=== PATIENT | male | born 1965 | race Caucasian/White ===

== ENCOUNTER 2017-11-14 08:17 | Inpatient (IN) | payer BC ==
[~2017-11-14] VITALS: Ht 177.8 cm; Wt 105.2 kg
--- NOTE | 2017-11-14 08:34 | NUR ---
Pt placed in bed 4
[2017-11-14 08:38] VITALS: BP_SYST 146
--- NOTE | 2017-11-14 08:49 | NUR ---
ER at bedside examining patient.
--- NOTE | 2017-11-14 08:57 | NUR ---
Fito meadows in ED - 11/14/17 at 0909 by LORNA Pt went to CT in stable condition
[2017-11-14] MEDS ORDERED: MORPHINE 4 MG/ML INJ. SYRINGE IVP ONE (09:00)
--- NOTE | 2017-11-14 09:07 | NUR ---
Medicated for pain per MD orders. Placed on SpO2 monitor. VSS.
--- NOTE | 2017-11-14 09:16 | NUR ---
Pt went to CT in stable condition
[2017-11-14 09:24] LABS: CALCIUM 9.5 mg/dL (8.4-11.0); CREATININE 0.75 mg/dL (0.55-1.30); POTASSIUM 4.7 mmol/L (3.5-5.1)
--- NOTE | 2017-11-14 09:26 | NUR ---
Pt returned from CT in stable condition
[2017-11-14 09:29] LABS: TOTAL BILIRUBIN 0.5 mg/dL (0.0-1.0)
[2017-11-14 09:38] LABS: BASOPHILS # (AUTO) 0.1 K/uL (0.0-0.2); BASOPHILS % (AUTO) 0.6 % (0.0-2.0); EOSINOPHILS # (AUTO) 0.1 K/uL (0.0-0.4); EOSINOPHILS % (AUTO) 1.2 % (0.0-4.0); HEMATOCRIT 42.2 % (36-54); HEMOGLOBIN 14.6 g/dL (14.0-18.0); LYMPHOCYTES # (AUTO) 0.9 K/uL (1.0-5.5); LYMPHOCYTES % (AUTO) 7.3 % (20.5-51.5); MEAN CORPUSCULAR HEMOGLOBIN 33 pg (27-31); MEAN CORPUSCULAR HGB CONC 35 % (32-36); MEAN CORPUSCULAR VOLUME 95 fL (79.0-98.0); MONOCYTES # (AUTO) 0.5 K/uL (0.0-1.0); NEUTROPHILS # (AUTO) 10.7 K/uL (1.8-7.7); NEUTROPHILS % (AUTO) 86.9 % (40.0-70.0); PLATELET COUNT (AUTO) 297 K/uL (130-430); RED BLOOD CELL COUNT(AUTO) 4.47 MIL/uL (4.2-6.2); RED CELL DISTRIBUTION WIDTH 11.6 % (9.0-15.0); WHITE BLOOD COUNT (AUTO) 12.3 K/uL (4.8-10.8)
[2017-11-14] MEDS ORDERED: LISI-600 PO (10:12)
[2017-11-14] MEDS ORDERED: NOR10 PO (10:12)
--- NOTE | 2017-11-14 10:13 | NUR ---
Medication reconciliation completed with information provided by patient. Any prior medication reconciliation on file was reviewed and corrected.
--- NOTE | 2017-11-14 10:15 | NUR ---
Lab and X ray are at bedside.
--- NOTE | 2017-11-14 10:24 | NUR ---
Patient will be admitted to care of Dr Wiseman. Admitted to Med surg unit. Will go to room 111B. Belongings list completed. Summary report printed. Report will be given at bedside.
[2017-11-14 10:27] LABS: INR 0.9 (0.80-1.20); PROTHROMBIN TIME 9.1 SECS (9.5-12.5)
--- NOTE | 2017-11-14 10:28 | NUR ---
ADMIT NOTE Received pt from ER to the floor with a diagnosis of Acute Diverticulitis. Admission process initiated. patient oriented to pain management, safety and call light-teach back done.
[2017-11-14 10:35] VITALS: BP_SYST 140
--- NOTE | 2017-11-14 10:45 | NUR ---
Opening Note: Patient laying in bed resting, at bedside. Patient denies pain and discomfort at this time. Breathing is even and unlabored with no distress noted. IV patent and intact. Bed in lowest position, wheels locked, side rails x3 and call light within reach. No current needs. WIll continue to monitor.
[2017-11-14] MEDS: metroNIDAZOLE 500 mg/NS 100 ML IV SCH ×2 (11:09→18:07)
[2017-11-14] MEDS ORDERED: MORPHINE 2 MG/ML INJ. SYRINGE IVP PRN (11:30)
[2017-11-14] MEDS ORDERED: ONDANSETRON HCL 4 MG/2 ML VIAL IVP PRN (11:30)
[2017-11-14] MEDS ORDERED: DIPHENHYDRAMINE INJ 50 MG/ML VIAL IVP PRN (11:30)
[2017-11-14] MEDS ORDERED: ACETAMINOPHEN 325 MG TABLET PO PRN (11:30)
[2017-11-14] MEDS ORDERED: MORPHINE 4 MG/ML INJ. SYRINGE IVP PRN (11:30)
[2017-11-14] MEDS ORDERED: TEMAZEPAM 15 MG CAPSULE PO PRN (11:30)
--- NOTE | 2017-11-14 12:03 | NUR ---
Rounding: Patient laying in bed resting. Assisted to restroom. Patient denies painn and discomfort. Stating "I feel a lot better than this morning". SCDs applied. IV antibiotics running per MD order. No current needs. Safety precautions in place. Will continue to monitor.
[2017-11-14 12:05] VITALS: BP_SYST 123
[2017-11-14] MEDS: LEVOFLOXACIN 500 MG/D5W 100 ML IV SCH (12:18)
--- NOTE | 2017-11-14 12:38 | NUR ---
CONSULTATION PAGED/CALLED Reason for Consultation: [] SBO, EMBILICAL HERNIA Person Who was Notified: [] KAMRAN Consulting Physician: [] DR Jody HILARIO Education Instructor Specialty: [] GEN SURGEON Ordering Physician: [] DR Shon DIAZ
--- NOTE | 2017-11-14 14:20 | NUR ---
Rounding: Patient laying in bed resting. Patient denies pain and discomfort. No signs of SOB or respiratory distress. No current needs. Will continue to monitor.
[2017-11-14] MEDS: LR 1,000 ML IV SCH (14:47)
[2017-11-14 16:04] VITALS: BP_SYST 126
--- NOTE | 2017-11-14 16:04 | NUR ---
Rounding: Patient laying in bed resting. Patient denies pain and discomfort. Breathing is even and unlabored with no distress noted. Patient assisted to the restroom. Medications tolerated well. Safety precautions in place. No current needs. Will continue to monitor.
--- NOTE | 2017-11-14 18:51 | NUR ---
Closing Note: Patient laying in bed resting. Patient denies pain and discomfort at this time. Breathing is even and unlabored with no distress noted. IV patent and intact running IV antibiotics per MD order. Bed in lowest position, wheels locked, side rails x3 and call light within reach. All needs met. Will endorse plan of care to NOC, nurse.
[2017-11-14 20:00] VITALS: BP_SYST 116
--- NOTE | 2017-11-14 20:00 | NUR ---
Initial Notes Received patient resting in bed, awake, alert, oriented. Patient in no acute distress at this time. Vital signs stable. Breathing is even and unlabored. IV site patent/clean/dry. Needs addressed. Educated patient regarding use of call light for assistance and fall precautions, patient verbalized understanding. Call light in hand, fall precautions in place. Will continue to monitor.
[2017-11-14] MEDS: DOCUSATE SODIUM 250 MG CAPSULE PO SCH (20:06)
--- NOTE | 2017-11-14 22:00 | NUR ---
Nursing Notes Patient resting in bed, awake. Patient denies any acute distress at this time. Breathing is even and unlabored. IV site patent/clean/dry. Needs addressed. Call light in hand, fall precautions in place.
--- NOTE | 2017-11-15 | NUR ---
Nursing Notes Patient resting in bed with eyes closed, easily aroused upon nurse entering room. Patient denies any acute distress or needs at this time. Breathing is even and unlabored. Call light in hand, fall precautions in place.
[2017-11-15 01:36] VITALS: BP_SYST 117
--- NOTE | 2017-11-15 02:00 | NUR ---
Nursing Notes Patient resting in bed with eyes closed. No acute distress noted, breathing is even and unlabored. IV site patent/clean/dry. Call light in hand, fall precautions in place. Will continue to monitor.
[2017-11-15] MEDS: LR 1,000 ML IV SCH (02:03)
[2017-11-15] MEDS: metroNIDAZOLE 500 mg/NS 100 ML IV SCH ×2 (02:04→10:36)
--- NOTE | 2017-11-15 04:18 | NUR ---
Nursing Notes Patient resting in bed with eyes closed. Patient appears in no acute distress. Breathing is even and unlabored. IV site patent/clean/dry. Call light in hand, fall precautions in place.
[2017-11-15 06:08] LABS: BASOPHILS % (AUTO) 0.5 % (0.0-2.0); EOSINOPHILS # (AUTO) 0.2 K/uL (0.0-0.4); EOSINOPHILS % (AUTO) 2.2 % (0.0-4.0); HEMOGLOBIN 14.3 g/dL (14.0-18.0); LYMPHOCYTES # (AUTO) 1.7 K/uL (1.0-5.5); LYMPHOCYTES % (AUTO) 20.1 % (20.5-51.5); MEAN CORPUSCULAR HEMOGLOBIN 33 pg (27-31); MEAN CORPUSCULAR HGB CONC 34 % (32-36); MEAN CORPUSCULAR VOLUME 96 fL (79.0-98.0); MONOCYTES # (AUTO) 0.5 K/uL (0.0-1.0); MONOCYTES % (AUTO) 6.3 % (1.7-9.3); NEUTROPHILS # (AUTO) 6.2 K/uL (1.8-7.7); NEUTROPHILS % (AUTO) 70.9 % (40.0-70.0); PLATELET COUNT (AUTO) 295 K/uL (130-430); RED BLOOD CELL COUNT(AUTO) 4.39 MIL/uL (4.2-6.2); RED CELL DISTRIBUTION WIDTH 11.7 % (9.0-15.0); WHITE BLOOD COUNT (AUTO) 8.6 K/uL (4.8-10.8)
--- NOTE | 2017-11-15 06:40 | NUR ---
Closing Notes Patient resting in bed with eyes closed, easily aroused. Patient denies any acute distress when asked. Breathing is even and unlabored. IV site patent/clean/dry, no S/S infection/infiltration noted. Needs addressed throughout shift. Call light in hand, fall precautions in place. Will continue to monitor for changes and safety, and endorse all patient care/needs to oncoming nurse.
[2017-11-15 07:12] LABS: CALCIUM 9.1 mg/dL (8.4-11.0); POTASSIUM 4.1 mmol/L (3.5-5.1)
[2017-11-15 07:13] LABS: CREATININE 0.88 mg/dL (0.55-1.30); TOTAL BILIRUBIN 0.4 mg/dL (0.0-1.0)
[2017-11-15 07:14] LABS: ALBUMIN 3.4 g/dL (3.4-4.8); THYROID STIMULATING HORMONE 1.12 uIu/mL (0.34-4.82)
[2017-11-15 07:54] VITALS: BP_SYST 130
--- NOTE | 2017-11-15 07:54 | NUR ---
INITIAL NOTE RECEIVED REPORT AND PATIENT FROM [employer] NURSE. PATIENT IN BED, AWAKE, ALERT, VERBALLY RESPONSIVE. DENIES ANY PAIN AT THIS TIME, NO RESPIRATORY DISTRESS NOTED. SAFETY PRECAUTIONS MAINTAINED, BED LOCKED, ON LOWEST POSITION, BED ALARM ACTIVATED. CALL LIGHT WITHIN REACH, WILL CONTINUE TO MONITOR.
[2017-11-15] MEDS: DOCUSATE SODIUM 250 MG CAPSULE PO SCH (08:26)
[2017-11-15] MEDS ORDERED: amLODIPine BESYLATE 10 MG TABLET PO SCH (09:00)
[2017-11-15] MEDS ORDERED: LISINOPRIL 20 MG TABLET PO SCH (09:00)
--- NOTE | 2017-11-15 10:10 | NUR ---
NURSING NOTES PATIENT IN BED, AWAKE, ALERT, VERBALLY RESPONSIVE. PATIENT DENIES ANY PAIN AT THIS TIME, NO COMPLAIN OF ABDOMINAL PAIN, NAUSEA OR VOMITING. CONTINUE ON IV ATB FOR DIVERTICULITIS WITH 20GAUGE IV LINE ON THE LEFT FOREARM VIA PUMP, IV SITE INTACT, PATENT. WILL CONTINUE TO MONITOR.
[2017-11-15] MEDS: LEVOFLOXACIN 500 MG/D5W 100 ML IV SCH (11:41)
--- NOTE | 2017-11-15 12:20 | NUR ---
NURSING NOTES PATIENT IN BED, AWAKE, ALERT. DENIES ANY PAIN AT THIS TIME. CONTINENT BOWEL AND BLADDER, AMBULATES TO THE BATHROOM, REMIND PATIENT TO ASK FOR ASSISTANCE AND TO CALL FOR HELP PRIOR TO GETTING OUT OF BED. CALL LIGHT WITHIN REACH, WILL CONTINUE TO MONITOR.
[2017-11-15 13:11] VITALS: BP_SYST 134
--- NOTE | 2017-11-15 13:33 | NUR ---
DR. DIAZ AT BEDSIDE DR. DIAZ MAKING ROUNDS, TALKED AND ASSESSED THE PATIENT, DISCHARGE ORDERS GIVEN.
[2017-11-15 14:18] VITALS: BP_SYST 134
--- NOTE | 2017-11-15 15:10 | NUR ---
DISCHARGE PATIENT IN BED. DISCHARGE INSTRUCTIONS AND WRITTEN PRESCRIPTION EXPLAINED AND GIVEN BY DR. DIAZ. PATIENT VERBALIZE UNDERSTANDING. PATIENT TOOK ALL BELONGINGS. PATIENT DENIES ANY PAIN, NO EPISODES OF NAUSEA/VOMITING OR DIARRHEA. WHEELED PATIENT OUT USING THE WHEEL CHAIR. PATIENT WAS PICKED UP BY HIS VIA PRIVATE CAR.
[2017-11-15 15:27] VITALS: BP_SYST 111
== END 2017-11-15 15:20 | disposition home or self-care (01) | DRG 394 ==
LOC: SED 08:17 → SMU 10:08
PROVIDERS: ADMIT Internal Medicine; ATTEND Internal Medicine
DX: K42.0 Umbilical hernia with obstruction, without gangrene (principal); K56.609 Unspecified intestinal obstruction, unspecified as to partial versus complete obstruction; K57.92 Diverticulitis of intestine, part unspecified, without perforation or abscess without bleeding; I10 Essential (primary) hypertension
CPT/HCPCS: 36415; 71045; 80053; 83605; 84443-TC; 85025; 85610-TC; 85730-TC; 86886; 86900; 86901; 87040-TC; 93005; 96374; 99285; J1956; J2270; J3490; J7120